=== PATIENT | female | born 1950 | race American Indian/Alaskan Native ===

== ENCOUNTER → 2016-09-05 | Outpatient (CLI) | payer BC ==
[~2016-09-05] MED LIST: CETI10TA84 PO; CLARITIN OTC PO; OMEP20TA14 PO; [UNRECOGNIZED DRUG - CODE] PO
--- NOTE | 2016-09-05 21:09 | DIAGNOSTIC IMAGING REPORT ---
RIGHT FOOT 3 VIEWS HISTORY: PAIN IN R FOOT Right COMPARISON: None. FINDINGS: There is no fracture or dislocation. Soft tissues are unremarkable. No radiopaque foreign bodies. There is a 1 cm lucent lesion within the medial aspect of the navicular bone with surrounding sclerosis. IMPRESSION: No fractures. A 1 cm lucent lesion within the medial aspect of the navicular bone with surrounding sclerosis. This could be due to an osteochondral defect or old trauma. CT can be used further evaluation if there is pain at this location. Electronically signed by: Alex Vang M.D. 09/05/2016 9:08 PM Dictated Date/Time: 09/05/2016 9:04 PM
== END | disposition home or self-care (01) ==
LOC: C.RAD 20:27
PROVIDERS: ATTEND Nurse Practitioner
DX: M79.671 Pain in right foot (principal)

== ENCOUNTER → 2017-02-12 | Outpatient (CLI) | payer BC ==
--- NOTE | 2017-02-12 11:44 | DIAGNOSTIC IMAGING REPORT ---
TWO VIEW CHEST CLINICAL HISTORY: Bilateral rales on physical examination. FINDINGS: PA and lateral chest radiographs are compared to study dated 07/20/2011. Correlation is made with chest CT dated 07/01/2008 The cardiomediastinal silhouette is unremarkable. Chronic interstitial thickening is similar to previous. No airspace consolidation or pleural effusion is identified. There is no pneumothorax. The skeletal structures are osteopenic. The bony thorax appears intact. Cholecystectomy clips are seen in the right upper quadrant. IMPRESSION: No active disease in the chest. Electronically signed by: Sly Denney M.D. 02/12/2017 11:43 AM Dictated Date/Time: 02/12/2017 11:42 AM
== END | disposition home or self-care (01) ==
LOC: C.RAD1850 11:24
PROVIDERS: ATTEND Family Medicine
DX: R09.89 Other specified symptoms and signs involving the circulatory and respiratory systems (principal)

== ENCOUNTER → 2017-03-09 | Outpatient (CLI) | payer BC | END | disposition home or self-care (01) | LOC: C.MAMM 09:49 | PROVIDERS: ATTEND Family Medicine | DX: M81.8 Other osteoporosis without current pathological fracture (principal); M85.89 Other specified disorders of bone density and structure, multiple sites ==

== ENCOUNTER → 2017-03-09 | Outpatient (CLI) | payer BC ==
--- NOTE | 2017-03-12 07:49 | MAMMOGRAPHY REPORT ---
BILATERAL DIGITAL SCREENING MAMMOGRAM TOMOSYNTHESIS WITH CAD: 03/09/2017 CLINICAL HISTORY: Routine screening examination. TECHNIQUE: Breast tomosynthesis in addition to standard 2D mammography was performed. Current study was also evaluated with a Computer Aided Detection (CAD) system. COMPARISON: Comparison is made to exams dated: 01/21/2016 mammogram, 12/15/2014 mammogram, 12/11/2013 ma mmogram, 12/02/2012 mammogram, 11/20/2011 mammogram, and 11/10/2010 mammogram - [facility] ter. BREAST COMPOSITION: The tissue of both breasts is heterogeneously dense, which may obscure small mas ses. FINDINGS: There is stable architectural distortion in the superior right breast, denoting an area of prior surgery. No new suspicious mass, unexpected architectural distortion or cluster of suspicious microcalcifications is seen. There are minimal vascular calcifications in the breasts. IMPRESSION: ACR BI-RADS CATEGORY 1: NEGATIVE There is no mammographic evidence of malignancy. A 1 year screening mammogram is recommended. The pa tient will receive written notification of the results. Approximately 10% of breast cancers are not detected with mammography. A negative mammographic report should not delay biopsy if a clinically suggestive mass is present. Luba Yusuf M.D. ay/:03/10/2017 08:55:55 Safety Engineer Pressure Vessels: Liana BUSTAMANTE(Stephen)(M), [facility] letter sent: Normal 1/2 BI-RADS Code: ACR BI-RADS Category 1: Negative
== END | disposition home or self-care (01) ==
LOC: C.MAMM 09:49
PROVIDERS: ATTEND Family Medicine
DX: Z12.31 Encounter for screening mammogram for malignant neoplasm of breast (principal)

== ENCOUNTER → 2017-03-15 | Outpatient (CLI) | payer BC ==
[2017-03-15 18:05] LABS: ALT/SGPT 81 U/L (12-78); BLOOD UREA NITROGEN 18 mg/dl (7-18); BUN/CREATININE RATIO 20.9 (10-20); CALCIUM 8.9 mg/dl (8.5-10.1); CARBON DIOXIDE 29 mmol/L (21-32); CHLORIDE 101 mmol/L (98-107); CREATININE 0.85 mg/dl (0.60-1.20); GLUCOSE 132 mg/dl (70-99); POTASSIUM 3.7 mmol/L (3.5-5.1); SODIUM 139 mmol/L (136-145)
[2017-03-15 18:15] LABS: ALB/GLOB RATIO 1.1 (0.9-2); ALKALINE PHOSPHATASE 84 U/L (45-117); AST/SGOT 44 U/L (15-37)
== END | disposition home or self-care (01) ==
LOC: C.LABPVFM 13:51
PROVIDERS: ATTEND Family Medicine
DX: R74.8 Abnormal levels of other serum enzymes (principal); R00.0 Tachycardia, unspecified

== ENCOUNTER → 2017-03-22 | Outpatient (CLI) | payer BC ==
--- NOTE | 2017-03-23 11:30 | PULMONARY FUNCTION TEST ---
CLINICAL DATA: A 66-year-old female with a height of 60 inches, a weight [address] Ang Bird for evaluation of asthma. Spirometry was performed. FINDINGS: Pre-bronchodilator spirometry is within normal limits. FVC is 125% of predicted. FEV1 was 115% of predicted. [id number] was 80% of predicted. IMPRESSION: Normal baseline spirometry. MTDD
== END | disposition home or self-care (01) ==
LOC: C.RC 09:39
PROVIDERS: ATTEND Family Medicine
DX: J45.909 Unspecified asthma, uncomplicated (principal)

== ENCOUNTER 2024-04-17 16:32 | Inpatient (IN) ==
--- NOTE | 2024-04-17 17:26 | XRay Report ---
EXAM: Chest x-ray 1 view not portable CLINICAL HISTORY: Cough PRIORS: None TECHNIQUE: PA chest FINDINGS: The chest is well-expanded. Right perihilar opacification noted. No confluent airspace consolidation, effusion or congestive changes. Heart size is top normal. No pneumothorax. Trachea is patent. Osseous structures demonstrate no acute abnormality. No radiopaque foreign body. IMPRESSION: Right perihilar opacification favoring pneumonia given the stated clinical history. If clinically appropriate, follow-up chest radiograph could be considered in 6 to 8 weeks to ensure radiographic resolution. Electronically signed by Lolita Rodrigez 04-17-2024 5:26 PM
[2024-04-17] MEDS: ALBUT/IPRATROP 3MG/0.5MG NEB 3 ML VIAL NEB STA ×2 (17:34→19:58)
[2024-04-17 18:44] LABS: Base Excess VBG 1.8 mEq/L; HCO3 VBG 26 mmol/L; Oxygen Saturation VBG 81.7 %; PCO2 VBG 37 mmHg (38-50); PO2 VBG 48 mmHg; pH VBG 7.45 (7.36-7.41)
[2024-04-17 18:47] LABS: Albumin Level 3.9 gm/dl (3.4-5.0); BUN Creatinine Ratio 18.5 (10-20); Bilirubin,Total 1.5 mg/dl (0.2-1.0); Calcium 9.1 mg/dl (8.6-10.3); Magnesium 1.7 mg/dl (1.7-2.4); Potassium 3.5 mmol/L (3.5-5.1); Total Protein 7.9 gm/dl (6.0-8.3)
[2024-04-17 18:53] LABS: Troponin I High Sensitivity 18.9 pg/ml (0-14)
[2024-04-17 18:59] LABS: INR 0.9 (0.9-1.1); Partial Thromboplastin Ratio 1.2; Partial Thromboplastin Time 31 Seconds (21-31); Prothrombin Time 10.3 Seconds (9.0-12.0)
[2024-04-17 19:03] LABS: Influenza A virus by PCR Positive (Neg); Influenza B virus by PCR Negative (Neg); RSV by PCR Negative (Neg); SARS CoV2 RNA(COVID-19) Ceph NEGATIVE (Negative)
[2024-04-17 19:15] LABS: Hemoglobin 11.6 g/dl (12.0-16.0); Mean Corpuscular Hemoglobin 29.6 pg (25.0-34.0); Mean Corpuscular Hgb Conc 34.1 g/dL (32.0-36.0); Mean Corpuscular Volume 86.7 fL (80.0-100.0); Mean Platelet Volume 9.4 fL (9.4-12.4); Platelet Count 273 K/uL (130-400); RDW Standard Deviation 40.6 fL (36.4-46.3); Red Blood Count 3.92 M/uL (4.20-5.40); White Blood Count 10.05 K/ul (4.8-10.8)
[2024-04-17 19:16] LABS: Basophils # (auto) 0.05 K/uL (0.00-0.20); Basophils % (auto) 0.5 %; Immature Granulocytes # (auto) 0.11 K/uL (0.01-0.20); Immature Granulocytes % (auto) 1.1 %; Lymphocytes # (auto) 0.72 K/uL (1.20-3.40); Lymphocytes % (auto) 7.2 %; Monocytes # (auto) 0.92 K/uL (0.11-0.59); Monocytes % (auto) 9.2 %; Neutrophils # (auto) 8.25 K/uL (1.40-6.50)
[2024-04-17 19:17] LABS: Appearance Urine Clear (Clear); Bacteria Urine Automated None Seen (None Seen); Bilirubin Urine Negative (Negative); Blood Urine 2+ (Negative); Cast Urine Automated 0-2 /lpf (0-2); Color Urine Yellow; Epithelial Cell Urine Auto 0-2 /hpf (0-2); Glucose Urine UA 3+ (Negative); Ketones Urine Negative (Negative); Leukocyte Esterase Urine Negative (Negative); Nitrite Urine Negative (Negative); Protein Urine 2+ (Negative); RBC Urine Automated >20 /hpf (0-2); Specific Gravity Urine 1.014 (1.000-1.030); Urobilinogen Urine Negative (Negative); WBC Urine Automated 0-5 /hpf (0-5); pH Urine 7.5 (4.5-7.5)
[2024-04-17] MEDS ORDERED: VANCOMYCIN CONSULT ACTIVE PRN (19:38)
[2024-04-17] MEDS: methylPREDNISolone 125 MG/2 ML VIAL IV STA (19:58)
[2024-04-17] MEDS: CEFEPIME 2000MG 2,000 MG/20 ML SYR IV STA (19:58)
[2024-04-17] MEDS: SODIUM CHLORIDE 0.9% 1,000 ML IV SCH (19:59)
[2024-04-17] MEDS ORDERED: ALBUTEROL HFA 8 GM INHALER INH PRN (20:56)
[2024-04-17] MEDS: VANCOMYCIN HCL 1,500 MG in SODIUM CHLORIDE 0.9% 500 ML IV ONE (21:03)
[2024-04-17] MEDS ORDERED: DEXTROSE 50% 50 ML SYRINGE IV PRN (23:00)
[2024-04-17] MEDS ORDERED: GLUCOSE 10 TAB/TUBE PO PRN (23:00)
[2024-04-17] MEDS ORDERED: ONDANSETRON INJ 2 MG/ML 2 ML VIAL IV PRN (23:00)
[2024-04-17] MEDS ORDERED: GLUCAGON FOR INJ 1 MG VIAL SQ PRN (23:00)
[2024-04-17] MEDS ORDERED: GLUCOSE 40% GEL 15 GM TUBE PO PRN (23:00)
[2024-04-17] MEDS ORDERED: CARBOHYDRATES FOR HYPOGLYCEMIA PO PRN (23:00)
[2024-04-17] MEDS: OSELTAMIVIR PHOSPHATE 75 MG CAP PO SCH (23:14)
[2024-04-17] MEDS: traZODone HCL 50 MG TAB PO SCH (23:15)
[2024-04-17] MEDS: FAMOTIDINE 40 MG TABLET PO SCH (23:15)
[2024-04-17] MEDS: HEPARIN SOD 5,000 UNIT/0.5 ML VIAL SQ SCH (23:18)
--- NOTE | 2024-04-17 23:32 | Emergency Department Note ---
History of Present Illness General Chief Complaint: Flu Like Symptoms Stated Complaint: HAS FLU, ASTHMA, COUGH, BACK PAIN, Time Seen by Provider: 04/17/24 17:05 History of Present Illness Provider Complaint: shortness of breath and cough Onset (ago): day(s) (2) Consistency/Duration: + progressively worsening Relieved By: + nothing Exacerbated By: + exertion and + coughing Context: + recent illness (Diagnosed with the flu yesterday) Known history of: asthma Associated symptoms: + fever, + cough, + wheezing and + chest congestion; no hemoptysis or no nausea/vomiting Treatment prior to arrival: other (Patient started on Tamiflu and prednisone yesterday) Home Medications Medication Instructions Recorded Confirmed Type albuterol sulfate 90 mcg/actuation 2 puff inhalation Q6 PRN Shortness 04/17/24 04/17/24 History aerosol inhaler Of Breath atorvastatin 10 mg tablet 10 mg PO QAM 04/17/24 04/17/24 History budesonide 160 mcg-glycopyr 9 2 inh inhalation BID 04/17/24 04/17/24 History mcg-formot 4.8 mcg/actuation HFA inhaler (Breztri Aerosphere) cholecalciferol (vitamin D3) 50 50 mcg PO QAM 04/17/24 04/17/24 History mcg (2,000 unit) tablet (Vitamin D3) diltiazem HCl 120 mg 120 mg PO QAM 04/17/24 04/17/24 History capsule,extended release 24 hr famotidine 40 mg tablet 40 mg PO AMHS 04/17/24 04/17/24 History loratadine 10 mg tablet (Claritin) 10 mg PO QAM 04/17/24 04/17/24 History losartan 50 mg-hydrochlorothiazide 1 tab PO QAM 04/17/24 04/17/24 History 12.5 mg tablet metformin 500 mg tablet,extended 500 mg PO QDD 04/17/24 04/17/24 History release 24 hr metoprolol succinate 50 mg 50 mg PO QAM 04/17/24 04/17/24 History tablet,extended release 24 hr oseltamivir 75 mg capsule 75 mg PO BID 04/17/24 04/17/24 History prednisone 20 mg tablet 40 mg PO DAILY 04/17/24 04/17/24 History sertraline 25 mg tablet 25 mg PO QAM 04/17/24 04/17/24 History trazodone 50 mg tablet 50 mg PO HS 04/17/24 04/17/24 History Allergies Allergy/AdvReac Type Severity Reaction Status Date / Time alendronate sodium Allergy Hives Verified 04/17/24 20:50 [From Fosamax] fluticasone Allergy Hives Verified 04/17/24 20:50 [From Advair Diskus] indapamide Allergy Unknown Verified 04/17/24 20:50 levofloxacin [From Levaquin] Allergy Hives Verified 04/17/24 20:50 montelukast Allergy Hives Verified 04/17/24 20:50 omeprazole [From Prilosec] Allergy Hives Verified 04/17/24 20:50 salmeterol Allergy Hives Verified 04/17/24 20:50 [From Advair Diskus] sulfamethoxazole Allergy Hives Verified 04/17/24 20:46 [From Bactrim] tramadol [From Ultram] Allergy Hives Verified 04/17/24 20:46 trimethoprim [From Bactrim] Allergy Hives Verified 04/17/24 20:46 acetaminophen [From Percocet] AdvReac Severe Gastrointestinal Verified 04/17/24 20:46 Upset codeine AdvReac Severe Gastrointestinal Verified 04/17/24 20:46 Upset fluticasone furoate AdvReac Severe rhinitis Verified 04/17/24 20:50 [From Trelegy Ellipta] oxycodone [From Percocet] AdvReac Severe Gastrointestinal Verified 04/17/24 20:46 Upset umeclidinium AdvReac Severe rhinitis Verified 04/17/24 20:50 [From Trelegy Ellipta] vilanterol AdvReac Severe rhinitis Verified 04/17/24 20:50 [From Trelegy Ellipta] cod fish Allergy Hives Uncoded 04/17/24 20:50 Past Med/Surg History Problem List (Updated 04/17/24 @ 23:32 by Pete Morris MD) Pneumonia (Acute) Acute hyponatremia (Acute) Influenza (Acute) Hypoxia (Acute) Medical History No pertinent family history HLD (hyperlipidemia) Diabetes HTN (hypertension) Surgical History No pertinent past surgical history Social History Smoking Status: Never smoker Preferred Language: Macedonian Feels Safe at Home: Yes Physical Exam 2 Vital Signs: Vital Signs - 24 hr 04/17/24 16:50 04/17/24 18:09 04/17/24 18:09 Temperature 37 C Temperature Source Temporal Artery Sc an Pulse Rate 121 H Pulse Rate [Apical ] 116 H Pulse Rhythm [Apic al] Pulse Strength [Ap ical] Respiratory Rate 20 22 Respiratory Effort / Characteristics Spontaneous Respiratory Depth Normal Respiratory Patter n Regular Blood Pressure 179/88 H Blood Pressure [Le ft Arm] 176/79 H Blood Pressure [place] n 118 Blood Pressure [place] n [Left Arm] 111 Blood Pressure Pos ition [Left Arm] Pulse Oximetry 91 93 94 Oxygen Delivery Me thod Room Air Oxygen Flow Rate Sepsis Recent Feve r Within 48 Hours No Sepsis New/Unexpla ined Change in Men radha Status No Sepsis Action Take n by Nursing No Action Required 04/17/24 18:32 04/17/24 19:27 04/17/24 19:28 Temperature 37.3 C Temperature Source Oral Pulse Rate Pulse Rate [Apical ] Pulse Rhythm [Apic al] Pulse Strength [Ap ical] Respiratory Rate Respiratory Effort / Characteristics Respiratory Depth Respiratory Patter n Blood Pressure Blood Pressure [Le ft Arm] Blood Pressure [place] n Blood Pressure [place] n [Left Arm] Blood Pressure Pos ition [Left Arm] Pulse Oximetry 86 L 94 Oxygen Delivery Me thod Room Air Nasal Cannula Oxygen Flow Rate 2 Sepsis Recent Feve r Within 48 Hours Sepsis New/Unexpla ined Change in Men radha Status Sepsis Action Take n by Nursing 04/17/24 20:00 Temperature Temperature Source Pulse Rate Pulse Rate [Apical ] 105 H Pulse Rhythm [Apic al] Regular Pulse Strength [Ap ical] Normal Respiratory Rate 18 Respiratory Effort / Characteristics Non-Labored Sponta neous Respiratory Depth Normal Respiratory Patter n Regular Blood Pressure Blood Pressure [Le ft Arm] 148/74 H Blood Pressure [place] n Blood Pressure [place] n [Left Arm] 98 Blood Pressure Pos ition [Left Arm] Semi-fowlers Pulse Oximetry 98 Oxygen Delivery Me thod Nasal Cannula Oxygen Flow Rate 3 Sepsis Recent Feve r Within 48 Hours Sepsis New/Unexpla ined Change in Men radha Status Sepsis Action Take n by Nursing Physical Exam: Physical Exam GENERAL: oriented to person, place, and time. appears well-developed and well- nourished. HENT: Exam performed. - Head: Normocephalic and atraumatic. EYES: Conjunctivae and EOM are normal. Right eye exhibits no discharge. Left eye exhibits no discharge. No scleral icterus. NECK: Normal range of motion. Neck supple. No JVD present. CV: Normal rate, regular rhythm, normal heart sounds and intact distal pulses. There is no peripheral edema. Palpable radial pulses bue. PULM/CHEST: Effort normal and breath sounds normal. No respiratory distress. No stridor. no wheezes. no rales. ABD: The abdomen is soft. There is no tenderness. NEURO: Motor and sensation grossly intact. SKIN: Skin is warm and dry. He is not diaphoretic. PSYCH: normal mood and affect. Behavior is normal. Judgment and thought content normal. Course Course 1705: The patient was evaluated in room [facility]. A complete history and physical exam was performed 1800: Patient's formal radiology read showed an infiltrate. Given the patient's recent diagnosis of influenza and this infiltrate on chest x-ray, there is a strong concern for Staphylococcus pneumonia. Patient will be moved to a ED room and a sepsis protocol will be initiated. Cardiac monitoring: An order was placed for continuous cardiac monitoring. The monitor shows a rate of 110 with sinus tachycardia rhythm interpreted by me 1945: Nursing informing that the patient came hypoxic on room air. Supplemental oxygen ordered for the patient which improved patient's oxygen saturation. Labs show a sodium of 125 high-sensitivity troponin 18.9 procalcitonin 0.64. Patient is positive for influenza. Given the patient's labs and imaging and influenza positive. Patient be treated with broad-spectrum antibiotics cefepime and vancomycin which should also cover any postoperative staph pneumonia. [facility]. Administered Medications Famotidine (Famotidine 40 Mg Tablet) 40 mg PO BID [facility] Stop: 05/17/24 20:59 Last Admin: 04/17/24 23:15 Dose: 40 mg Documented By: EV Heparin Sodium (Porcine) (Heparin Sod 5,000 Unit/0.5 Ml Vial) 5,000 units SQ Q12 MAHESH Stop: 05/17/24 22:59 Last Admin: 04/17/24 23:18 Dose: 5,000 units Documented By: ESG Sodium Chloride (Nss) 1,000 mls @ 125 mls/hr IV .Q8H MAHESH Stop: 04/18/24 19:44 Last Admin: 04/17/24 19:59 Dose: 125 mls/hr Documented By: IDD Oseltamivir Phosphate (Oseltamivir Phosphate 75 Mg Cap) 75 mg PO BID MAHESH; Protocol Stop: 04/22/24 20:59 Last Admin: 04/17/24 23:14 Dose: 75 mg Documented By: ESG Trazodone HCl (Trazodone Hcl 50 Mg Tab) 50 mg PO HS MAHESH Stop: 05/17/24 20:59 Last Admin: 04/17/24 23:15 Dose: 50 mg Documented By: ESG Discontinued Medications Albuterol (Albut/Ipratrop 3mg/0.5mg Neb 3 Ml Vial) 3 ml NEB NOW STA; Protocol Stop: 04/17/24 17:25 Last Admin: 04/17/24 17:34 Dose: 3 ml Documented By: MMG Albuterol (Albut/Ipratrop 3mg/0.5mg Neb 3 Ml Vial) 3 ml NEB NOW STA; Protocol Stop: 04/17/24 19:39 Last Admin: 04/17/24 19:58 Dose: 3 ml Documented By: MAYA Cefepime HCl (Maxipime 2000mg) 2,000 mg in 20 mls @ 5 mls/min IV NOW STA; Protocol Stop: 04/17/24 19:41 Last Admin: 04/17/24 19:58 Dose: 5 mls/min Documented By: IDD Vancomycin HCl 1,500 mg/ (Sodium Chloride) 530 mls @ 200 mls/hr IV NOW ONE Stop: 04/17/24 22:16 Last Admin: 04/17/24 21:03 Dose: 200 mls/hr Documented By: IDD Methylprednisolone (Methylprednisolone 125 Mg/2 Ml Vial) 125 mg IV NOW STA Stop: 04/17/24 19:39 Last Admin: 04/17/24 19:58 Dose: 125 mg Documented By: IDTor Medical Decision Making Laboratory Data Attestation: I reviewed the patient's lab results. 04/17/24 18:00 04/17/24 18:00 Lab Results 01/02/25 01/02/25 01/02/25 Range/Units 18:00 18:30 18:57 WBC 10.05 (4.8-10.8) K/ul RBC 3.92 L (4.20-5.40) M/uL Hgb 11.6 L (12.0-16.0) g/dl Hct 34.0 L (37.0-47.0) % MCV 86.7 (80.0-100.0) fL MCH 29.6 (25.0-34.0) pg MCHC 34.1 (32.0-36.0) g/dL RDW Std Deviation 40.6 (36.4-46.3) fL RDW Coeff of Halley 13.0 (11.5-14.5) % Plt Count 273 (130-400) K/uL MPV 9.4 (9.4-12.4) fL Immature Gran % (Auto) 1.1 % Neut % (Auto) 82.0 % Lymph % (Auto) 7.2 % [place] % (Auto) 9.2 % Eos % (Auto) 0.0 % Baso % (Auto) 0.5 % Neut # (Auto) 8.25 H (1.40-6.50) K/uL Lymph # (Auto) 0.72 L (1.20-3.40) K/uL [place] # (Auto) 0.92 H (0.11-0.59) K/uL Eos # (Auto) 0.00 (0.00-0.50) K/uL Baso # (Auto) 0.05 (0.00-0.20) K/uL Immature Gran # (Auto) 0.11 (0.01-0.20) K/uL PT 10.3 (9.0-12.0) Seconds INR 0.9 (0.9-1.1) APTT 31 (21-31) Seconds PTT Ratio 1.2 VBG pH 7.45 H (7.36-7.41) VBG pCO2 37 L (38-50) mmHg VBG pO2 48 mmHg VBG HCO3 26 mmol/L VBG O2 Saturation 81.7 % VBG Base Excess 1.8 mEq/L Sodium 125 L (136-145) mmol/L Potassium 3.5 (3.5-5.1) mmol/L Chloride 88 L (98-107) mmol/L Carbon Dioxide 25 (21-32) mmol/L Anion Gap 12 H (3-11) BUN 10 (6-23) mg/dl Creatinine 0.54 L (0.6-1.2) mg/dl Est Cr Clr Drug Dosing 76.0 ml/min eGFR 98.37 BUN/Creatinine Ratio 18.5 (10-20) Glucose 266 H (70-99(Fasting)) mg/dl Lactate 1.8 (0.4-2.0) mmol/L Calcium 9.1 (8.6-10.3) mg/dl Magnesium 1.7 (1.7-2.4) mg/dl Total Bilirubin 1.5 H (0.2-1.0) mg/dl Direct Bilirubin 1.0 H (0-0.2) mg/dl AST 46 H (13-39) U/L ALT 44 (7-52) U/L Alkaline Phosphatase 368 H (34-104) U/L Troponin I High Sens 18.9 H (0-14) pg/ml Total Protein 7.9 (6.0-8.3) gm/dl Albumin 3.9 (3.4-5.0) gm/dl Procalcitonin 0.64 H (0-0.5) ng/ml Urine Color Yellow Urine Appearance Clear (Clear) Urine pH 7.5 (4.5-7.5) Ur Specific [place] 1.014 (1.000-1.030) Urine Protein 2+ H (Negative) Urine Glucose (UA) 3+ H (Negative) Urine Ketones Negative (Negative) Urine Blood 2+ H (Negative) Urine Nitrite Negative (Negative) Urine Bilirubin Negative (Negative) Urine Urobilinogen Negative (Negative) Ur Leukocyte Esterase Negative (Negative) Urine WBC (Auto) 0-5 (0-5) /hpf Urine RBC (Auto) >20 H (0-2) /hpf U Hyaline Cast (Auto) 0-2 (0-2) /lpf U Epithel Cells (Auto) 0-2 (0-2) /hpf Urine Bacteria (Auto) None Seen (None Seen) SARS-CoV-2 (PCR) NEGATIVE (Negative) Influenza Type A (PCR) Positive A (Neg) Influenza Type B (PCR) Negative (Neg) RSV (RT-PCR) Negative (Neg) Imaging Data Radiologist's Impression: Chest X-Ray 04/17/24 16:53 EXAM: Chest x-ray 1 view not portable CLINICAL HISTORY: Cough PRIORS: None TECHNIQUE: PA chest FINDINGS: The chest is well-expanded. Right perihilar opacification noted. No confluent airspace consolidation, effusion or congestive changes. Heart size is top normal. No pneumothorax. Trachea is patent. Osseous structures demonstrate no acute abnormality. No radiopaque foreign body. IMPRESSION: Right perihilar opacification favoring pneumonia given the stated clinical history. If clinically appropriate, follow-up chest radiograph could be considered in 6 to 8 weeks to ensure radiographic resolution. Electronically signed by Lolita Rodrigez 04-17-2024 5:26 PM ECG Data Attestation: I personally reviewed and interpreted this ECG as follows: Interpretation: Sinus tachycardia with rate of 112. IA 130 QRS [address] elevation or ST depression. [facility] Narrative 1705: The patient was evaluated in room [facility]. A complete history and physical exam was performed 1800: Patient's formal radiology read showed an infiltrate. Given the patient's recent diagnosis of influenza and this infiltrate on chest x-ray, there is a strong concern for Staphylococcus pneumonia. Patient will be moved to a ED room and a sepsis protocol will be initiated. Cardiac monitoring: An order was placed for continuous cardiac monitoring. The monitor shows a rate of 110 with sinus tachycardia rhythm interpreted by nm 1945: Nursing informing that the patient came hypoxic on room air. Supplemental oxygen ordered for the patient which improved patient's oxygen saturation. Labs show a sodium of 125 high-sensitivity troponin 18.9 procalcitonin 0.64. Patient is positive for influenza. Given the patient's labs and imaging and influenza positive. Patient be treated with broad-spectrum antibiotics cefepime and vancomycin which should also cover any postoperative staph pneumonia. [facility] Impression & Plan Hypoxia, Influenza, Acute hyponatremia, Pneumonia Critical Care Time Critical Care Time: Yes Total Critical Care Time: 70 I have personally spent greater than 70 minutes of critical care time in the direct management of this patient. This includes bedside care, interpretation of diagnostic studies, and testing, discussion with consultants, patient, and family members, and other required patient management activities. This 70 minutes is in excess of all separately billable procedures. Discharge Plan Visit Data Chief Complaint: Flu Like Symptoms Stated Complaint: HAS FLU, ASTHMA, COUGH, BACK PAIN, ED Provider: Pete Morris Discharge Problem: Hypoxia, Influenza, Acute hyponatremia, Pneumonia Patient Disposition: Admitted As Inpatient Discharge Instructions Interventions: ED Discharge Assessment Last Done: 04/17/24 22:12 Discharge Problem: Pneumonia Qualifiers: Pneumonia type: due to unspecified organism Laterality: unspecified laterality Lung location: unspecified part of lung Qualified Code(s): J18.9 - Pneumonia, unspecified organism
[2024-04-17] MEDS: BENZONATATE 100 MG CAPSULE PO PRN (23:54)
[2024-04-17] MEDS: INSULIN ASPART PER UNIT CHARGE SC SCH (23:54)
--- NOTE | 2024-04-18 04:23 | History & Physical Report ---
Date of Service April 18, 2024 The patient was seen and examined on April 18, 2024 Assessment & Plan (1) Acute respiratory failure with hypoxia: (2) Influenza A: (3) Secondary bacterial pneumonia: (4) Acute hyponatremia: Plan The patient is a 73-year-old female with a past medical history including asthma, hyperlipidemia, hypertension, GERD, allergic rhinitis, diabetes mellitus, anxiety, depression and insomnia. She presents to the emergency department with complaint of what feels like an asthma exacerbation, with worsening shortness of breath, cough and wheezing, which she attributes to exposure to family members over the holidays. #Acute respiratory failure with hypoxia- Combination of influenza A and secondary bacterial pneumonia involving right lung #Influenza A- Tamiflu 75 mg p.o. twice daily Given Solu-Medrol 125 mg IV in the ED Solu-Medrol 40 mg IV every 8 hours Mucinex 60 mg p.o. twice daily Duonebs every 4 hours while awake and every 2 hours when necessary. #Secondary bacterial pneumonia involving right lung- MRSA swab Continue vancomycin IV and cefepime IV begun in the ED #Diabetes mellitus- Hold metformin Glucose 266 on admission Placed on Accu-Cheks with NovoLog SSI #Hyponatremia- Associated decreased oral intake and diabetes IV fluids as above and recheck laboratories in the a.m. #Elevated troponin/hypertension 18.9 on admission Follow-up ordered and pending Likely type II supply/demand mismatch Continue diltiazem, losartan, aspirin, and metoprolol succinate Admission and Anticipated Discharge Date Admission Date: April 17, 2024 History of Present Illness Chief Complaint: The patient presents to the emergency department with symptoms of worsening shortness of breath exacerbation, cough, generalized myalgias and arthralgias, audible wheezing over the past 4 to 5 days, particular worsening over the past 24 hours. She attributes this to exposure to sick family relatives over the holidays Primary Care Provider: Eliezer Dixon The patient is a 73-year-old female with a past medical history including asthma, hyperlipidemia, hypertension, GERD, allergic rhinitis, diabetes mellitus, anxiety, depression and insomnia. She presents to the emergency department with complaint of what feels like an asthma exacerbation, with worsening shortness of breath, cough and wheezing, which she attributes to exposure to family members over the holidays. Allergies Allergy/AdvReac Type Severity Reaction Status Date / Time alendronate sodium Allergy Hives Verified 04/17/24 20:50 [From Fosamax] fluticasone Allergy Hives Verified 04/17/24 20:50 [From Advair Diskus] indapamide Allergy Unknown Verified 04/17/24 20:50 levofloxacin [From Levaquin] Allergy Hives Verified 04/17/24 20:50 montelukast Allergy Hives Verified 04/17/24 20:50 omeprazole [From Prilosec] Allergy Hives Verified 04/17/24 20:50 salmeterol Allergy Hives Verified 04/17/24 20:50 [From Advair Diskus] sulfamethoxazole Allergy Hives Verified 04/17/24 20:46 [From Bactrim] tramadol [From Ultram] Allergy Hives Verified 04/17/24 20:46 trimethoprim [From Bactrim] Allergy Hives Verified 04/17/24 20:46 acetaminophen [From Percocet] AdvReac Severe Gastrointestinal Verified 04/17/24 20:46 Upset codeine AdvReac Severe Gastrointestinal Verified 04/17/24 20:46 Upset fluticasone furoate AdvReac Severe rhinitis Verified 04/17/24 20:50 [From Trelegy Ellipta] oxycodone [From Percocet] AdvReac Severe Gastrointestinal Verified 04/17/24 20:46 Upset umeclidinium AdvReac Severe rhinitis Verified 04/17/24 20:50 [From Trelegy Ellipta] vilanterol AdvReac Severe rhinitis Verified 04/17/24 20:50 [From Trelegy Ellipta] cod fish Allergy Hives Uncoded 04/17/24 20:50 Home Medications Medication Instructions Recorded Confirmed Type albuterol sulfate 90 mcg/actuation 2 puff inhalation Q6 PRN Shortness 04/17/24 04/17/24 History aerosol inhaler Of Breath atorvastatin 10 mg tablet 10 mg PO QAM 04/17/24 04/17/24 History budesonide 160 mcg-glycopyr 9 2 inh inhalation BID 04/17/24 04/17/24 History mcg-formot 4.8 mcg/actuation HFA inhaler (Breztri Aerosphere) cholecalciferol (vitamin D3) 50 50 mcg PO QAM 04/17/24 04/17/24 History mcg (2,000 unit) tablet (Vitamin D3) diltiazem HCl 120 mg 120 mg PO QAM 04/17/24 04/17/24 History capsule,extended release 24 hr famotidine 40 mg tablet 40 mg PO AMHS 04/17/24 04/17/24 History loratadine 10 mg tablet (Claritin) 10 mg PO QAM 04/17/24 04/17/24 History losartan 50 mg-hydrochlorothiazide 1 tab PO QAM 04/17/24 04/17/24 History 12.5 mg tablet metformin 500 mg tablet,extended 500 mg PO QDD 04/17/24 04/17/24 History release 24 hr metoprolol succinate 50 mg 50 mg PO QAM 04/17/24 04/17/24 History tablet,extended release 24 hr oseltamivir 75 mg capsule 75 mg PO BID 04/17/24 04/17/24 History prednisone 20 mg tablet 40 mg PO DAILY 04/17/24 04/17/24 History sertraline 25 mg tablet 25 mg PO QAM 04/17/24 04/17/24 History trazodone 50 mg tablet 50 mg PO HS 04/17/24 04/17/24 History Past Med/Surg History Problem List (Updated 04/18/24 @ 04:15 by Jason Lao MD) Secondary bacterial pneumonia Influenza A Acute respiratory failure with hypoxia Pneumonia (Acute) Acute hyponatremia (Acute) Influenza (Acute) Hypoxia (Acute) Medical History No pertinent family history HLD (hyperlipidemia) Diabetes HTN (hypertension) Surgical History No pertinent past surgical history Social History Smoking Status: Former smoker Hx Alcohol Use: No Hx Substance Use: No Preferred Language: Ukrainian Communication Ability: Effective Provisioning Analyst Required: No Beliefs That Will Affect Care: None Current Living Situation: Spouse Other Information That Helps Us Care for You: No Feels Safe at Home: Yes Safety Concerns: Feels Safe At This Time Assistive Devices: Glasses Review of Systems Review of Systems: The patient denies chest pain, palpitations, lower extremity swelling, sore throat, fevers, chills, sweats, nausea, vomiting, diarrhea , constipation, abdominal pain, pelvic pain, blood in urine or stool, dysuria, urinary frequency or urgency, lightheadedness, dizziness, headache, memory loss, loss of consciousness, rash, abnormal bruising or bleeding, focal weakness, numbness or tingling in arms or legs, back or neck pain, or night sweats. The review of systems is otherwise negative other than for that already noted above, and at least 10 systems have been reviewed. Physical Exam Physical Exam: The patient is awake, alert and oriented 3, well developed and well nourished, normocephalic and atraumatic, lying in bed and in no acute distress. HEENT--PERRL, EOMI, mucous membranes and oropharynx mildly dry. Neck--supple. No JVD. No bruits. Thyroid normal, trachea midline, no adenopathy. Heart--normal S1 and S2. No murmurs, rubs or gallops. Lungs--coarse breath sounds with wheezes bilaterally. No respiratory distress, no accessory muscle use. Abdomen--normal bowel sounds and soft. Nontender. Nondistended, no hernias or masses, no organomegaly. Extremities--no cyanosis or clubbing. No edema. There are good distal pulses b/l. Dermatologic--normal skin turgor, normal color, no abnormal lymph nodes, no rash. Neurologic--cranial nerves II through XII grossly intact. Rheumatologic--normal range of motion. Psychiatric--normal affect. Results & Data Results & Data Vital Signs (Past 12 Hours) Vital Signs Temp Pulse Pulse Resp BP BP Pulse Ox 04/18/24 02:05 36.9 C 101 H 16 143/72 H 96 04/18/24 00:00 113 H 04/17/24 23:00 04/17/24 22:12 107 H 18 144/73 H 94 04/17/24 22:10 107 H 18 144/73 H 94 04/17/24 21:45 37.1 C 109 H 20 163/78 H 94 04/17/24 20:10 111 H 04/17/24 20:00 105 H 18 148/74 H 98 04/17/24 19:28 94 04/17/24 19:27 86 L 04/17/24 18:32 37.3 C 04/17/24 18:09 94 04/17/24 18:09 116 H 22 176/79 H 93 04/17/24 16:50 37 C 121 H 20 179/88 H 91 Pulse Ox O2 Del Method O2 Del Method O2 Flow Rate O2 Flow Rate 04/18/24 02:05 Nasal Cannula 2 04/18/24 00:00 04/17/24 23:00 93 Nasal Cannula 2 04/17/24 22:12 Nasal Cannula 3 04/17/24 22:10 Nasal Cannula 3 04/17/24 21:45 Nasal Cannula 2 04/17/24 20:10 04/17/24 20:00 Nasal Cannula 3 04/17/24 19:28 Nasal Cannula 2 04/17/24 19:27 Room Air 04/17/24 18:32 04/17/24 18:09 04/17/24 18:09 04/17/24 16:50 Room Air Laboratory Results Laboratory Results WBC 10.05 K/ul (4.8-10.8) 04/17/24 18:00 RBC 3.92 M/uL (4.20-5.40) L 04/17/24 18:00 Hgb 11.6 g/dl (12.0-16.0) L 04/17/24 18:00 Hct 34.0 % (37.0-47.0) L 04/17/24 18:00 MCV 86.7 fL (80.0-100.0) 04/17/24 18:00 MCH 29.6 pg (25.0-34.0) 04/17/24 18:00 MCHC 34.1 g/dL (32.0-36.0) 04/17/24 18:00 RDW Std Deviation 40.6 fL (36.4-46.3) 04/17/24 18:00 RDW Coeff of Halley 13.0 % (11.5-14.5) 04/17/24 18:00 Plt Count 273 K/uL (130-400) 04/17/24 18:00 MPV 9.4 fL (9.4-12.4) 04/17/24 18:00 Immature Gran % (Auto) 1.1 % 04/17/24 18:00 Neut % (Auto) 82.0 % 04/17/24 18:00 Lymph % (Auto) 7.2 % 04/17/24 18:00 [place] % (Auto) 9.2 % 04/17/24 18:00 Eos % (Auto) 0.0 % 04/17/24 18:00 Baso % (Auto) 0.5 % 04/17/24 18:00 Neut # (Auto) 8.25 K/uL (1.40-6.50) H 04/17/24 18:00 Lymph # (Auto) 0.72 K/uL (1.20-3.40) L 04/17/24 18:00 [place] # (Auto) 0.92 K/uL (0.11-0.59) H 04/17/24 18:00 Eos # (Auto) 0.00 K/uL (0.00-0.50) 04/17/24 18:00 Baso # (Auto) 0.05 K/uL (0.00-0.20) 04/17/24 18:00 Immature Gran # (Auto) 0.11 K/uL (0.01-0.20) 04/17/24 18:00 PT 10.3 Seconds (9.0-12.0) 04/17/24 18:00 INR 0.9 (0.9-1.1) 04/17/24 18:00 APTT 31 Seconds (21-31) 04/17/24 18:00 PTT Ratio 1.2 04/17/24 18:00 VBG pH 7.45 (7.36-7.41) H 04/17/24 18:30 VBG pCO2 37 mmHg (38-50) L 04/17/24 18:30 VBG pO2 48 mmHg 04/17/24 18:30 VBG HCO3 26 mmol/L 04/17/24 18:30 VBG O2 Saturation 81.7 % 04/17/24 18:30 VBG Base Excess 1.8 mEq/L 04/17/24 18:30 Sodium 125 mmol/L (136-145) L 04/17/24 18:00 Potassium 3.5 mmol/L (3.5-5.1) 04/17/24 18:00 Chloride 88 mmol/L (98-107) L 04/17/24 18:00 Carbon Dioxide 25 mmol/L (21-32) 04/17/24 18:00 Anion Gap 12 (3-11) H 04/17/24 18:00 BUN 10 mg/dl (6-23) 04/17/24 18:00 Creatinine 0.54 mg/dl (0.6-1.2) L 04/17/24 18:00 Est Cr Clr Drug Dosing 76.0 ml/min 04/17/24 18:00 eGFR 98.37 04/17/24 18:00 BUN/Creatinine Ratio 18.5 (10-20) 04/17/24 18:00 Glucose 266 mg/dl (70-99(Fasting)) H 04/17/24 18:00 POC Glucose 206 mg/dl (70-99) H 04/18/24 02:04 Lactate 1.8 mmol/L (0.4-2.0) 04/17/24 18:00 Calcium 9.1 mg/dl (8.6-10.3) 04/17/24 18:00 Magnesium 1.7 mg/dl (1.7-2.4) 04/17/24 18:00 Total Bilirubin 1.5 mg/dl (0.2-1.0) H 04/17/24 18:00 Direct Bilirubin 1.0 mg/dl (0-0.2) H 04/17/24 18:00 AST 46 U/L (13-39) H 04/17/24 18:00 ALT 44 U/L (7-52) 04/17/24 18:00 Alkaline Phosphatase 368 U/L (34-104) H 04/17/24 18:00 Troponin I High Sens 18.9 pg/ml (0-14) H 04/17/24 18:00 Total Protein 7.9 gm/dl (6.0-8.3) 04/17/24 18:00 Albumin 3.9 gm/dl (3.4-5.0) 04/17/24 18:00 Triglycerides 66 mg/dl (0-150) 04/17/24 23:15 Cholesterol 129 mg/dl (0-200) 04/17/24 23:15 LDL Cholesterol, Calc 52 mg/dl 04/17/24 23:15 VLDL Cholesterol, Calc 13 mg/dl (0-30) 04/17/24 23:15 HDL Cholesterol 64 mg/dl 04/17/24 23:15 Cholesterol/HDL Ratio 2.0 (0-5) 04/17/24 23:15 Procalcitonin 0.64 ng/ml (0-0.5) H 04/17/24 18:00 Urine Color Yellow 04/17/24 18:57 Urine Appearance Clear (Clear) 04/17/24 18:57 Urine pH 7.5 (4.5-7.5) 04/17/24 18:57 Ur Specific [place] 1.014 (1.000-1.030) 04/17/24 18:57 Urine Protein 2+ (Negative) H 04/17/24 18:57 Urine Glucose (UA) 3+ (Negative) H 04/17/24 18:57 Urine Ketones Negative (Negative) 04/17/24 18:57 Urine Blood 2+ (Negative) H 04/17/24 18:57 Urine Nitrite Negative (Negative) 04/17/24 18:57 Urine Bilirubin Negative (Negative) 04/17/24 18:57 Urine Urobilinogen Negative (Negative) 04/17/24 18:57 Ur Leukocyte Esterase Negative (Negative) 04/17/24 18:57 Urine WBC (Auto) 0-5 /hpf (0-5) 04/17/24 18:57 Urine RBC (Auto) >20 /hpf (0-2) H 04/17/24 18:57 U Hyaline Cast (Auto) 0-2 /lpf (0-2) 04/17/24 18:57 U Epithel Cells (Auto) 0-2 /hpf (0-2) 04/17/24 18:57 Urine Bacteria (Auto) None Seen (None Seen) 04/17/24 18:57 Nasal Screen MRSA (PCR) Negative (Negative) 04/17/24 22:21 SARS-CoV-2 (PCR) NEGATIVE (Negative) 04/17/24 18:00 Influenza Type A (PCR) Positive (Neg) A 04/17/24 18:00 Influenza Type B (PCR) Negative (Neg) 04/17/24 18:00 RSV (RT-PCR) Negative (Neg) 04/17/24 18:00 Impressions Chest X-Ray 04/17/24 16:53 EXAM: Chest x-ray 1 view not portable CLINICAL HISTORY: Cough PRIORS: None TECHNIQUE: PA chest FINDINGS: The chest is well-expanded. Right perihilar opacification noted. No confluent airspace consolidation, effusion or congestive changes. Heart size is top normal. No pneumothorax. Trachea is patent. Osseous structures demonstrate no acute abnormality. No radiopaque foreign body. IMPRESSION: Right perihilar opacification favoring pneumonia given the stated clinical history. If clinically appropriate, follow-up chest radiograph could be considered in 6 to 8 weeks to ensure radiographic resolution. Electronically signed by Lolita Rodrigez 04-17-2024 5:26 PM Code Status & VTE Plan Code Status Full code VTE Prophylaxis Plan VTE Prophylaxis will be ordered: Yes PG Care Time/CCT Total # of Minutes Spent Total Time Spent with Patient: Total time spent is greater than 50% in coordination of care (as documented) at patient's floor/unit and/or counseling patient: Coding Level of Care Code 82344 INT INP/OBS CARE 3/75MIN Diagnoses Acute respiratory failure with hypoxia J96.01 Influenza A J10.1 Secondary bacterial pneumonia J15.9 Acute hyponatremia E87.1
[2024-04-18] MEDS: CEFEPIME 2000MG 2,000 MG/20 ML SYR IV SCH (06:32)
[2024-04-18 07:38] LABS: Basophils # (auto) 0.02 K/uL (0.00-0.20); Basophils % (auto) 0.2 %; Hematocrit (blood only) 31.6 % (37.0-47.0); Hemoglobin 10.8 g/dl (12.0-16.0); Immature Granulocytes # (auto) 0.13 K/uL (0.01-0.20); Immature Granulocytes % (auto) 1.2 %; Lymphocytes # (auto) 0.72 K/uL (1.20-3.40); Lymphocytes % (auto) 6.5 %; Mean Corpuscular Hemoglobin 29.8 pg (25.0-34.0); Mean Corpuscular Hgb Conc 34.2 g/dL (32.0-36.0); Mean Corpuscular Volume 87.1 fL (80.0-100.0); Mean Platelet Volume 9.3 fL (9.4-12.4); Monocytes # (auto) 0.47 K/uL (0.11-0.59); Monocytes % (auto) 4.2 %; Neutrophils % (auto) 87.9 %; Platelet Count 290 K/uL (130-400); RDW Coefficient of Variation 12.8 % (11.5-14.5); RDW Standard Deviation 40.8 fL (36.4-46.3); Red Blood Count 3.63 M/uL (4.20-5.40); White Blood Count 11.14 K/ul (4.8-10.8)
[2024-04-18 08:02] LABS: Albumin Globulin Ratio 0.9 (0.9-2); Albumin Level 3.6 gm/dl (3.4-5.0); BUN Creatinine Ratio 24.4 (10-20); Bilirubin,Total 0.8 mg/dl (0.2-1.0); Calcium 8.4 mg/dl (8.6-10.3); Creatinine Clr Calc Pharmacy 99.2 ml/min; Globulin 3.9 gm/dl (2.5-4.0); Magnesium 1.9 mg/dl (1.7-2.4); Potassium 3.5 mmol/L (3.5-5.1); Total Protein 7.5 gm/dl (6.0-8.3); Troponin I High Sensitivity 13.4 pg/ml (0-14)
[2024-04-18] MEDS: ASPIRIN 81 MG ECTAB PO SCH (08:36)
[2024-04-18] MEDS: ATORVASTATIN 10 MG TAB PO SCH (08:36)
[2024-04-18] MEDS: METOPROLOL SUCC 50MG EXT REL TAB PO SCH (08:36)
[2024-04-18] MEDS: dilTIAZem HCL 120 MG CAPCR PO SCH (08:36)
[2024-04-18] MEDS: LORATADINE 10 MG TAB PO SCH (08:36)
[2024-04-18] MEDS: CHOLECALCIFEROL 25 MCG (1000 UNITS) TAB PO SCH (08:36)
[2024-04-18] MEDS: SERTRALINE HCL 50 MG TABLET PO SCH (08:37)
[2024-04-18] MEDS ORDERED: VANCOMYCIN HCL 1,000 MG/270 ML BAG IV SCH (09:00)
[2024-04-18 10:05] LABS: Estimated Average Glucose 151 mg/dl; Hemoglobin A1C 6.9 % (4.5-5.6)
--- NOTE | 2024-04-18 13:22 | Electrocardiogram Report ---
Test Reason : Blood Pressure : */* mmHG Vent. Rate : 112 BPM Atrial Rate : 112 BPM P-R Int : 130 ms QRS Dur : 74 ms QT Int : 318 ms P-R-T Axes : 52 56 54 degrees QTcB Int : 434 ms Sinus tachycardia Otherwise normal ECG No previous ECGs available Confirmed by Felix Barksdale ([id number]) on 04/18/2024 1:22:15 PM Referred By: REFERRED SELF Confirmed By: Felix Barksdale
--- NOTE | 2024-04-18 14:08 | XCELERA ---
[id number] \\[email or web address]\[id number]
[2024-04-18] MEDS: ACETAMINOPHEN 325 MG TAB PO PRN (14:33)
[2024-04-18 17:51] LABS: Appearance Urine Clear (Clear); Bacteria Urine Automated None Seen (None Seen); Bilirubin Urine Negative (Negative); Blood Urine 2+ (Negative); Cast Urine Automated 0-2 /lpf (0-2); Color Urine Yellow; Epithelial Cell Urine Auto 0-2 /hpf (0-2); Glucose Urine UA Trace (Negative); Ketones Urine Negative (Negative); Leukocyte Esterase Urine Negative (Negative); Nitrite Urine Negative (Negative); Protein Urine 1+ (Negative); Specific Gravity Urine 1.009 (1.000-1.030); Urobilinogen Urine Negative (Negative); WBC Urine Automated 0-5 /hpf (0-5); pH Urine 7.5 (4.5-7.5)
--- NOTE | 2024-04-18 18:27 | Hospitalist Progress Note ---
Date of Service April 18, 2024 Assessment & Plan (1) Acute respiratory failure with hypoxia: (2) Influenza A: (3) Secondary bacterial pneumonia: (4) Acute hyponatremia: Plan The patient is a 73-year-old female with a past medical history including asthma, hyperlipidemia, hypertension, GERD, allergic rhinitis, diabetes mellitus, anxiety, depression and insomnia. She presents to the emergency department with complaint of what feels like an asthma exacerbation, with worsening shortness of breath, cough and wheezing, which she attributes to exposure to family members over the holidays. #Acute respiratory failure with hypoxia- Combination of influenza A and secondary bacterial pneumonia involving right lung #Influenza A- Tamiflu 75 mg p.o. twice daily Solu-Medrol 40 mg IV - decrease to BID Supportive care: mucinex, IS, prn tessalon Duonebs every 4 hours while awake and every 2 hours when necessary. #Secondary bacterial pneumonia involving right lung- MRSA negative, vancomycin discontinued. Continue cefepime #Tachycardia ST 110s on the monitor - pt does report chronic issues with this. Last note from [facility] cards reviewed, no hx of afib noted. Continue diltiazem and metoprolol - if remain tachycardic overnight consider increase dose of metoprolol Denies palpitations or shortness of breath AM TSH #Hematuria Seen on UA twice, pt denies blood in urine but urine has been darker No flank pain or concerns for kidney stone. Recommend outpatient urology follow up #Diabetes mellitus- Hold metformin. A1c 6.9 - defer to PCP for adjustments Placed on Accu-Cheks with NovoLog SSI - bsg acceptable #Hyponatremia- 125 on admission but 130 corrected for glucose. Recheck today 134 AM BMP #Elevated troponin/hypertension 18.9, repeat 13.4 - Likely type II supply/demand mismatch Continue diltiazem, losartan, aspirin, and metoprolol succinate Echo: EF 60-65%, no regional wall motion abnormalities Mental health - continue zoloft, trazadone Dispo: continued inpatient stay DVT proh: SQ heparin Family updated at bedside 04/18 Admission and Anticipated Discharge Date Admission Date: April 17, 2024 Subjective Patient seen earlier, no family present at bedside. states that she has been sick for the last week. has upper back pain from coughing, but not flank pain. Has not noticed blood in her urine is anxious to go home Revisited this evening with and daughter in the room - reports that she has seen cardiology in the past for sinus tachycardia. never told that she had afib/flutter. denies hx of thryoid problems. tele - ST 110s Review of Systems Review of Systems: All systems reviewed & are unremarkable except as noted in Subjective Physical Exam Physical Exam: General: NAD, VS as above Resp: normal respiratory effort, lungs corse in the bases, non productive cough. weaned down to room air during my encounter CV: RRR, no murmur, Abd: normal bowel sounds, non tender, no hepatosplenomegaly : no flank pain Extremities: Moves all extremities, no edema Neuro: A&O x3, Skin: intact, no lesions noted Results & Data Results & Data Vital Signs (Past 12 Hours) Vital Signs Temp Pulse Resp BP Pulse Ox O2 Del Method O2 Flow Rate 04/18/24 15:26 98.6 F 113 H 20 159/81 H 96 Room Air 04/18/24 11:30 98.6 F 113 H 17 159/81 H 96 Nasal Cannula 2 04/18/24 10:18 Nasal Cannula 2 04/18/24 07:50 98.4 F 109 H 20 169/82 H 92 Nasal Cannula 2 PG Care Time/CCT Total # of Minutes Spent Total Time Spent with Patient: Total time spent is greater than 50% in coordination of care (as documented) at patient's floor/unit and/or counseling patient: Coding Level of Care Code None Diagnoses Acute respiratory failure with hypoxia J96.01 Influenza A J10.1 Secondary bacterial pneumonia J15.9 Acute hyponatremia E87.1
[2024-04-18] MEDS: methylPREDNISolone 40 MG in SYRINGE 0 ML IV SCH (20:34)
[2024-04-18] MEDS: BUDESONIDE/GLYCOPYR/FORMOTEROL INHALER INH SCH (20:37)
[2024-04-18] MEDS ORDERED: BUDESONIDE/GLYCOPYR/FORMOTEROL INHALER INH SCH (21:00)
[2024-04-18] MEDS ORDERED: methylPREDNISolone 10 mg/mL (For Ped Dose < 7mg) IV SCH (21:00)
[2024-04-19 06:49] LABS: Basophils # (auto) 0.03 K/uL (0.00-0.20); Basophils % (auto) 0.2 %; Hematocrit (blood only) 29.6 % (37.0-47.0); Hemoglobin 10.3 g/dl (12.0-16.0); Immature Granulocytes # (auto) 0.22 K/uL (0.01-0.20); Immature Granulocytes % (auto) 1.7 %; Lymphocytes # (auto) 0.88 K/uL (1.20-3.40); Lymphocytes % (auto) 6.9 %; Mean Corpuscular Hemoglobin 30.1 pg (25.0-34.0); Mean Corpuscular Hgb Conc 34.8 g/dL (32.0-36.0); Mean Corpuscular Volume 86.5 fL (80.0-100.0); Mean Platelet Volume 9.4 fL (9.4-12.4); Monocytes % (auto) 3.9 %; Neutrophils # (auto) 11.05 K/uL (1.40-6.50); Neutrophils % (auto) 87.3 %; Platelet Count 326 K/uL (130-400); RDW Coefficient of Variation 13.1 % (11.5-14.5); RDW Standard Deviation 41.4 fL (36.4-46.3); Red Blood Count 3.42 M/uL (4.20-5.40); White Blood Count 12.68 K/ul (4.8-10.8)
[2024-04-19 07:18] LABS: Albumin Level 3.2 gm/dl (3.4-5.0); Bilirubin,Total 0.4 mg/dl (0.2-1.0); Calcium 8.1 mg/dl (8.6-10.3); Creatinine Clr Calc Pharmacy 103.4 ml/min; Globulin 3.3 gm/dl (2.5-4.0); Magnesium 2.2 mg/dl (1.7-2.4); Potassium 3.7 mmol/L (3.5-5.1); Total Protein 6.5 gm/dl (6.0-8.3)
[2024-04-19 07:32] VITALS: TEMP 98.2
[2024-04-19 07:33] LABS: Thyroid Stimulating Hormone 0.289 uIu/ml (0.300-4.500)
[2024-04-19 08:08] LABS: T4 Free Thyroxine 1.22 ng/dl (0.61-1.60)
[2024-04-19 11:13] VITALS: RESP 20; O2SAT 96
--- NOTE | 2024-04-19 12:32 | Discharge Summary ---
Discharge Summary Date of Service April 19, 2024 Principal Dx & Hospital Course #1 = Principal Diagnosis Admission HPI Per Admitting Provider The patient is a 73-year-old female with a past medical history including asthma, hyperlipidemia, hypertension, GERD, allergic rhinitis, diabetes mellitus, anxiety, depression and insomnia. She presents to the emergency department with complaint of what feels like an asthma exacerbation, with worsening shortness of breath, cough and wheezing, which she attributes to exposure to family members over the holidays. Discharge Plan Discharge Items Patient Disposition: Home - Self-Care Reason For Visit: INFLUENZA A INFECTION Discharge Diagnosis: 1. influenza A infection 2. right-sided pneumonia - either due to influenza or bacterial infection 3. blood in urine (hematuria) - due to passed kidney stone? other cause? 4. abnormal liver function tests - improving - likely due to influenza A 5. asthma with exacerbation - improving 6. high blood pressure 7. diabetes Activity: As commented below Activity Comment: gradually increase activities over the next week Non-emergency contact: Primary Care Provider Call non-emergency contact if: you have any medication questions and your symptoms worsen Follow-up/Referrals: Eliezer Dixon [Primary Care Provider] - (within 1 week ) Diet: Carb Consistent or DM2 and Heart Healthy Addtl Attending Provider Instructions: Mrs Mills, You were hospitalized due to influenza A infection, right-sided pneumonia, and asthma exacerbation. You were treated with Tamiflu (oseltamivir) for the flu, antibiotics for the pneumonia, and steroids for your asthma. You made nice improvement in all symptoms with the above treatments. Oxygen was weaned off on 04/18/24. Labs showed mildly abnormal liver function tests which may have been due to the flu virus itself. The liver tests have improved during your stay. In addition, you had seen some blood recently in your urine. We call this hematuria. There are numerous causes of hematuria. One common cause is kidney stones. On a CT scan done in October 2023 you had a 3mm kidney stone on the left, and a tiny (<1mm) stone on the right. It is possible you were trying to pass one of these stones which can cause blood in the urine. If the blood was to recur I would recommend getting another CT scan to check the status of these stones. Recommendations - 1. influenza - * Tamiflu (oseltamivir) - 75mg twice daily x 3 days, first dose TONIGHT * plan to spend this weekend resting and recovering at home * by this Sunday - if you are feeling better, cough is improved, no fever is present, etc - it is unlikely you are contagious to others and you can go about with normal activities outside your home at that time 2. for pneumonia - * doxycycline 100mg twice daily x 5 days, first dose TONIGHT * this antibiotic can cause stomach upset in some individuals - thus, continue your famotidine as normal; if you need more acid suppression you can take additional ssje-chq-qfbpzet prilosec or nexium * rarely can this antibiotic cause a rash if you spend large amounts of time in the sun; this is typically not an issue this time of year 3. for asthma - * PREDNISONE course - start this TOMORROW, 04/20/24 * you have 20mg tablets that were recently prescribed to you before this hospital stay * please take 40mg (20mg tab x 2) on 04/20/24 and 40mg on 04/21/24 * on 04/22/24 please start the additional bottle of prednisone (these are 10mg tablets) and follow the taper directions on the bottle * I have prescribed albuterol nebulizer treatments for you * you can take a neb every 4 hours as needed for cough/wheezing/shortness of breath * over the next week or two feel free to use these as much as needed for your symptoms 4. for cough - * sbxa-urm-tspnqhn mucinex up to 1200mg twice daily as needed/as desired * benzonatate 100mg every 8 hours as needed for cough (this is a cough suppressant) * albuterol as needed 5. know that the prednisone may cause your blood sugars to be high over the next week or so; please watch your sugar intake carefully 6. you may have a cough for another 1-2 weeks as you recover from your illnes 7. please have a repeat chest x-ray in 1-2 months to ensure all of the pneumonia has gone away radiographically 8. have your family doctor repeat your liver function tests ("LFTs") in 1 week to ensure they have normalized Follow-up - see separate section Return to [facility] if - * you have fevers over 100 degrees * you have worsening shortness of breath * you have chest pains * you develop severe diarrhea (3 or more loose stools in 24 hours) * you have worsening wheezing * any other concerns It was our pleasure to care for you! Happy new year, Dr Lawrence Pending Studies at Discharge: No Stand-Alone Forms: My [facility], Smoking Cessation Medications and DC Order Prescriptions: New benzonatate 100 mg Capsule 100 mg PO TID PRN (Reason: cough) Qty: 20 0RF prednisone 10 mg tablet 10 mg PO DIRECTED Qty: 11 0RF Rx Instructions: take with food. 3 tabs PO QD x 2 days; 2 tabs PO QD x 2 days; 1 tab PO QD x 1 day. albuterol sulfate 2.5 mg/0.5 mL solution for nebulization 2.5 mg inhalation Q4H PRN (Reason: cough/wheeze/shortness of breath) Qty: 30 0RF doxycycline hyclate 100 mg tablet 100 mg PO BID 5 Days Qty: 10 0RF Rx Instructions: first dose PM of 04/19/24. Continued fluocinolone acetonide oil 0.01 % drops 5 drp otic (ear) BID PRN (Reason: itchy ears) 30 Days Qty: 20 8RF cholecalciferol (vitamin D3) [Vitamin D3] 50 mcg (2,000 unit) capsule 2,000 unit PO QAM atorvastatin 10 mg tablet 10 mg PO QAM prednisone 20 mg tablet 40 mg PO DAILY Rx Instructions: x 5 days trazodone 50 mg tablet 50 mg PO HS sertraline 25 mg tablet 25 mg PO QAM diltiazem HCl 120 mg capsule,extended release 24hr 120 mg PO QAM losartan-hydrochlorothiazide 50-12.5 mg tablet 1 tab PO QAM metformin 500 mg tablet extended release 24 hr 500 mg PO QDD metoprolol succinate 50 mg tablet extended release 24 hr 50 mg PO QAM famotidine 40 mg tablet 40 mg PO AMHS albuterol sulfate 90 mcg/actuation HFA aerosol inhaler 2 puff INHALATION Q6 PRN (Reason: Shortness Of Breath) loratadine [Claritin] 10 mg Tablet 10 mg PO QAM Breztri Aerosphere 160-9-4.8 mcg/actuation HFA aerosol inhaler 2 inh INHALATION BID oseltamivir 75 mg capsule 75 mg PO BID 3 Days Qty: 6 0RF Discharge Orders: Discharge Order (Routine); Ordered 04/19/24 Ordered By: Ang De La Torre/Other Patient Handouts: ED Influenza (Adult), Type 2 Diabetes Admission Data Admit Date/Time: 04/17/24 20:09 Attending Provider: Ang Lawrence Admit Provider: Jason Lao Primary Care Provider: Eliezer Dixon Other Providers: Jason Lao Hospital Stay Data Consultations 04/17/24 19:40 ED Decision to Admit Stat Pending Results Patient Have Any Pending Studies at Discharge: No Discharge Instructions Given to Patient (Per Discharging Provider) Mrs Mills, Nasim were hospitalized due to influenza A infection, right-sided pneumonia, and asthma exacerbation. You were treated with Tamiflu (oseltamivir) for the flu, antibiotics for the pneumonia, and steroids for your asthma. You made nice improvement in all symptoms with the above treatments. Oxygen was weaned off on 04/18/24. Labs showed mildly abnormal liver function tests which may have been due to the flu virus itself. The liver tests have improved during your stay. In addition, you had seen some blood recently in your urine. We call this hematuria. There are numerous causes of hematuria. One common cause is kidney stones. On a CT scan done in October 2023 you had a 3mm kidney stone on the left, and a tiny (<1mm) stone on the right. It is possible you were trying to pass one of these stones which can cause blood in the urine. If the blood was to recur I would recommend getting another CT scan to check the status of these stones. Recommendations - 1. influenza - * Tamiflu (oseltamivir) - 75mg twice daily x 3 days, first dose TONIGHT * plan to spend this weekend resting and recovering at home * by this Sunday - if you are feeling better, cough is improved, no fever is present, etc - it is unlikely you are contagious to others and you can go about with normal activities outside your home at that time 2. for pneumonia - * doxycycline 100mg twice daily x 5 days, first dose TONIGHT * this antibiotic can cause stomach upset in some individuals - thus, continue your famotidine as normal; if you need more acid suppression you can take additional mgeb-wzk-hoqufgk prilosec or nexium * rarely can this antibiotic cause a rash if you spend large amounts of time in the sun; this is typically not an issue this time of year 3. for asthma - * PREDNISONE course - start this TOMORROW, 04/20/24 * you have 20mg tablets that were recently prescribed to you before this hospital stay * please take 40mg (20mg tab x 2) on 04/20/24 and 40mg on 04/21/24 * on 04/22/24 please start the additional bottle of prednisone (these are 10mg tablets) and follow the taper directions on the bottle * I have prescribed albuterol nebulizer treatments for you * you can take a neb every 4 hours as needed for cough/wheezing/shortness of breath * over the next week or two feel free to use these as much as needed for your symptoms 4. for cough - * bnby-tij-ucyrjht mucinex up to 1200mg twice daily as needed/as desired * benzonatate 100mg every 8 hours as needed for cough (this is a cough suppressant) * albuterol as needed 5. know that the prednisone may cause your blood sugars to be high over the next week or so; please watch your sugar intake carefully 6. you may have a cough for another 1-2 weeks as you recover from your illnes 7. please have a repeat chest x-ray in 1-2 months to ensure all of the pneumonia has gone away radiographically 8. have your family doctor repeat your liver function tests ("LFTs") in 1 week to ensure they have normalized Follow-up - see separate section Return to [facility] if - * you have fevers over 100 degrees * you have worsening shortness of breath * you have chest pains * you develop severe diarrhea (3 or more loose stools in 24 hours) * you have worsening wheezing * any other concerns It was our pleasure to care for you! Happy new year, Dr Lawrence Coding
[2024-04-19 13:25] VITALS: BP 159/81; PULSE 113
== END 2024-04-19 13:27 | disposition home or self-care (01) | DRG 194 ==
LOC: EDBD → ED 16:32 → SUATTDRO 20:09 → MERGE 20:09 → 2S 20:09